=== PATIENT | male | born 1955 | race Caucasian/White ===

== ENCOUNTER 2022-05-20 10:26 | Emergency (ER) | payer SELFPAY ==
[~2022-05-20] VITALS: Ht 177.8 cm; Wt 79.4 kg
--- NOTE | 2022-05-20 10:31 | NUR ---
Patient to ER bed 8 to [facility] for evaluation. Side rails up. Report given to Belem MCKENNA. Addendum: 05/20/22 at 1033 by SUSU room
[2022-05-20 10:33] VITALS: BP_SYST 149
--- NOTE | 2022-05-20 10:41 | NUR ---
PT CAME IN THIS MORNING, VISITING FROM THE [facility]. C/O LEFT EAR DISCHARGE X 4 DAYS, HX OF LEFT EAR GROMMET SURGERY. PT IS AMBUALTORY, AAOX4, VSS
--- NOTE | 2022-05-20 10:42 | NUR ---
ER at bedside examining patient.
--- NOTE | 2022-05-20 10:45 | NUR ---
Pt c/o left ear pain. skin intact, no redness, no fever. Pt is aaox4, no neuro defecit. Pt ambulates with steady gait.
[2022-05-20] MEDS ORDERED: CORTEARS EACH EAR (10:54)
[2022-05-20] MEDS ORDERED: AMOX500C2 PO (10:54)
--- NOTE | 2022-05-20 11:01 | NUR ---
Patient given written and verbal discharge instructions and verbalizes understanding. ER MD discussed with patient the results and treatment provided. Patient in stable condition. ID arm band removed. Rx of cortisporin given. Patient educated on pain management and to follow up with PMD. Opportunity for questions provided and answered. Medication side effect fact sheet provided.
[2022-05-20 11:04] VITALS: BP_SYST 149
--- NOTE | 2022-05-20 11:40 | NUR ---
Florentin bob in [facility] - 05/20/22 at 1644 by SDNRADHA JAYLYN Fleming at bedside examining patient.
== END 2022-05-20 11:01 | disposition home or self-care (01) ==
LOC: SED 10:26
DX: H66.92 Otitis media, unspecified, left ear (principal); H92.02 Otalgia, left ear; Z79.899 Other long term (current) drug therapy
CPT/HCPCS: 99283